=== PATIENT | male | born 1975 | race Caucasian/White ===

== ENCOUNTER 2018-02-24 20:05 | Emergency (ER) | payer BC ==
[~2018-02-24] VITALS: Ht 172.7 cm; Wt 72.6 kg
[2018-02-24 20:19] VITALS: BP 146/85
--- NOTE | 2018-02-24 20:48 | Emergency Room Report ---
History of Present Illness General Chief Complaint: Multiple Trauma/Fall Source: Patient Present Illness HPI Patient presented after a skateboard accident earlier patient reports falling and putting His right hand out Afterwards patient had pain to the right wrist Pain is worse with any flexion or extension Denies any elbow pain Denies any neuropathy to the digits and eyes any chest pain denies any head injury Allergies: Coded Allergies: No Known Allergies (Unverified , 02/24/18) Patient History Past Medical History: see triage record Pertinent Family History: none Reviewed Nursing Documentation: PMH: Agreed; PSxH: Agreed Nursing Documentation-PMH Past Medical History: No Stated History Review of Systems All Other Systems: negative except mentioned in HPI Physical Exam Vital Signs Date Time Temp Pulse Resp B/P (MAP) Pulse Ox O2 Delivery O2 Flow Rate FiO2 02/24/18 20:09 98.1 54 16 146/85 98 Room Air 02/24/18 20:19 99 Sp02 EP Interpretation: reviewed, normal General Appearance: well appearing, no apparent distress Head: normocephalic, atraumatic Eyes: bilateral eye PERRL, bilateral eye EOMI ENT: normal pharynx, no angioedema Neck: supple Respiratory: lungs clear Cardiovascular #1: regular rate, rhythm Gastrointestinal: non tender, soft Musculoskeletal: other - Discomfort and swelling to the mid wrist on the right hand, neurovascularly intact good pulses proximally and distally, no obvious open cuts Neurologic: alert, oriented x3, responsive Skin: other - Swelling as noted Lymphatic: no adenopathy Procedures Splinting Splinting : Consent: Verbal Location: Right wrist Pre-Made Type: velcro Splint: volar Pre-Proc Neuro Vasc Exam: normal Post-Proc Neuro Vasc Exam: normal Patient Tolerated: Well Complications: None Medical Decision Making Diagnostic Impression: Primary Impression: Wrist fracture ER Course Given the patient's history and presentation imaging study was obtained On my review there is questionable mid wrist fracture Patient is splinted provided instructions regarding possible early fracture requires close repeat evaluation, likely repeat imaging and cast as needed Other X-Ray Diagnostic Results Other X-Ray Diagnostic Results : X-Ray ordered: Right wrist # of Views/Limited Vs Complete: 3 View Indication: Pain EP Interpretation: Yes Interpretation: no dislocation, no soft tissue swelling, other - Question fracture mid wrist Impression: Other - Questionable fracture Electronically Signed by: Steff Mortensen DO Last Vital Signs Date Time Temp Pulse Resp B/P (MAP) Pulse Ox O2 Delivery O2 Flow Rate FiO2 02/24/18 20:19 54 16 Room Air 99 02/24/18 20:19 98.1 146/85 98 Status: improved Disposition: HOME, SELF-CARE Condition: Improved Scripts Ibuprofen* (MOTRIN*) 600 Mg Tablet 600 MG ORAL Q8H PRN for For Pain, #20 TAB 0 Refills Prov: Steff Mortensen DO 02/24/18 Steff Mortensen DO Feb 24, 2018 20:48
--- NOTE | 2018-02-24 20:54 | Diagnostic Imaging Report ---
ADDENDUM - Added by Jessica Avila M.D. on 02/24/2018 9:23 PM (-08: 00) Additional review suggests perhaps cortical irregularity in the distal radius. Distal fracture with intra-articular extension not excluded. Difficult to confirm on the other projections. CT or followup xrays may be useful. EXAM: XR Right Wrist Complete, 3 or More Views CLINICAL HISTORY: TRAUMA TECHNIQUE: Frontal, lateral and oblique views of the right wrist. COMPARISON: No relevant prior studies available. FINDINGS: Bones/joints: No acute fracture. Soft tissues: No radiodense foreign body. Soft tissue swelling. IMPRESSION: No acute fracture. Critical Value Communications 02/24/18 21:30 Call From [facility] Steff Mortensen MD on 02/24 21:10 (-08: 00)
[2018-02-24] MEDS ORDERED: IBUPROFEN600 MG ORAL (21:21)
[2018-02-24 21:28] VITALS: BP_SYST 118; BP_SYST 140; BP_DIAS 73; BP_DIAS 83
== END 2018-02-24 21:28 | disposition home or self-care (01) ==
LOC: EMR 21:20
DX: S62.101A Fracture of unspecified carpal bone, right wrist, initial encounter for closed fracture (principal); V00.131A Fall from skateboard, initial encounter; Y93.51 Activity, roller skating (inline) and skateboarding; Y92.488 Other paved roadways as the place of occurrence of the external cause
CPT/HCPCS: 99283